=== PATIENT | female | born 1950 | race African-American/Black ===

== ENCOUNTER 2017-01-01 10:11 | Emergency (ER) | payer MEDICARE, MEDICAID ==
[~2017-01-01] VITALS: Ht 165.1 cm; Wt 135.6 kg
[2017-01-01] MEDS ORDERED: HYDR50CA2 PO (11:08)
[2017-01-01] MEDS ORDERED: TRIA15OI TP (11:08)
--- NOTE | 2017-01-01 11:09 | PHYS DOC ---
Past Medical History Past Medical History: Diabetes-Type II, GERD, Hypertension Past Surgical History: Other Additional Past Surgical Histo: "SOMETHING TO MY BREAST" Alcohol Use: None Drug Use: None Adult General Chief Complaint Chief Complaint: SKIN PROBLEM HPI HPI Patient is a 66 year old female with history of hypertension and diabetes type 2 who presents today with insect bites for the last 2 weeks. Patient states she' s had a pruritic rash from insect bites. Patient states she has tried over-the- counter medicines including Benadryl with no relief. She states she is from [place]. Review of Systems Review of Systems Constitutional: Denies fever or chills [] Eyes: Denies change in visual acuity, redness, or eye pain [] HENT: Denies nasal congestion or sore throat [] Respiratory: Denies cough or shortness of breath [] Cardiovascular: No additional information not addressed in HPI [] GI: Denies abdominal pain, nausea, vomiting, bloody stools or diarrhea [] : Denies dysuria or hematuria [] Musculoskeletal: Denies back pain or joint pain [] Integument: rash Neurologic: Denies headache, focal weakness or sensory changes [] Endocrine: Denies polyuria or polydipsia [] Allergies Allergies Allergies Coded Allergies Type Severity Reaction Last Updated Verified No Known Drug Allergies 01/01/17 No Physical Exam Physical Exam Constitutional: Well developed, well nourished, no acute distress, non-toxic appearance. [] HENT: Normocephalic, atraumatic, bilateral external ears normal, oropharynx moist, no oral exudates, nose normal. [] Eyes: PERRLA, EOMI, conjunctiva normal, no discharge. [] Neck: Normal range of motion, no tenderness, supple, no stridor. [] Cardiovascular:Heart rate regular rhythm, no murmur [] Lungs & Thorax: Bilateral breath sounds clear to auscultation [] Abdomen: Bowel sounds normal, soft, no tenderness, no masses, no pulsatile masses. [] Skin: Scattered areas of erythematous macular rash suspicious off chigger bites throughout her upper and lower extremities. Back: No tenderness, no CVA tenderness. [] Extremities: No tenderness, no cyanosis, no clubbing, ROM intact, no edema. [] Neurologic: Alert and oriented X 3, normal motor function, normal sensory function, no focal deficits noted. [] Psychologic: Affect normal, judgement normal, mood normal. [] Current Patient Data Vital Signs Vital Signs Date Time Temp Pulse Resp B/P (MAP) Pulse Ox O2 Delivery O2 Flow Rate FiO2 01/01/17 10:20 97.6 104 22 96 Room Air 97.6 EKG EKG [] Radiology/Procedures Radiology/Procedures [] Course & Med Decision Making Course & Med Decision Making Pertinent Labs and Imaging studies reviewed. (See chart for details) Patient has insect bites suspicious of chigger bites. She was discharged with triamcinolone cream and Atarax. Importance of hygiene emphasized. Her blood pressure was 212/125. Patient states she has history of hypertension and she has not taken her medicine for days because she did not feel like it due to this rash making her itch. I talked to this patient at length about the importance of taking blood pressure medicines. She produced her own medicines from her purse including lisinopril metoprolol and amlodipine which she took in the ED. She was instructed to follow-up with her doctor in the next 7 days. She has no neurological cardiac symptoms right now. Dragon Disclaimer Dragon Disclaimer This electronic medical record was generated, in whole or in part, using a voice recognition dictation system. Departure Departure Impression: Primary Impression: Insect bite Additional Impression: Accelerated hypertension Disposition: 01 HOME, SELF-CARE Condition: STABLE Referrals: NO PCP (PCP) Follow-up with your own doctor in the next 7 days Patient Instructions: Hypertension, [id number], Insect Bite Additional Instructions: You were seen for insect bites. Take the prescribed medicines as ordered. Your blood pressure was 212/125 in the emergency room. Please understand the importance of taking your blood pressure medicines. Do not miss taking these medications. Contact your primary care doctor and follow-up as well. Come back to the ED if you have any new or worsening symptoms. Scripts Triamcinolone Acetonide (TRIAMCINOLONE ACETONIDE 0.1% OINT) 15 Gm Oint...g. 1 MAYRA TP TID for WOUND CARE, #1 TUBE 1 Refill MIX WITH EUCERIN DIRECTED BY PHYSICIAN Prov: DIDIER CRAFT APRN 01/01/17 Hydroxyzine Pamoate (HYDROXYZINE PAMOATE) 50 Mg Capsule 1 CAP PO Q6HRS Y for RASH, #60 CAP 1 Refill Prov: DIDIER CRAFT APRN 01/01/17 Problem Qualifiers Primary Impression: Insect bite Encounter type: initial encounter Qualified Codes: W57.XXXA - Bitten or stung by nonvenomous insect and other nonvenomous arthropods, initial encounter DIDIER CRAFT APRN Jan 01, 2017 11:09
[2017-01-01 11:15] VITALS: BP 159/103
== END 2017-01-01 11:15 | disposition home or self-care (01) ==
LOC: ER 10:11
DX: S60.561A Insect bite (nonvenomous) of right hand, initial encounter (principal); S80.862A Insect bite (nonvenomous), left lower leg, initial encounter; S80.861A Insect bite (nonvenomous), right lower leg, initial encounter; E11.9 Type 2 diabetes mellitus without complications; I10 Essential (primary) hypertension; K21.9 Gastro-esophageal reflux disease without esophagitis; W57.XXXA Bitten or stung by nonvenomous insect and other nonvenomous arthropods, initial encounter; Y93.9 Activity, unspecified; Y92.9 Unspecified place or not applicable; Y99.9 Unspecified external cause status
CPT/HCPCS: 99283